=== PATIENT | male | born 1950 | race American Indian/Alaskan Native ===

== ENCOUNTER 2017-07-18 16:41 | Emergency (ER) | payer BC, OTHER ==
[~2017-07-18] VITALS: Ht 167.6 cm; Wt 84.4 kg
[~2017-07-18 16:41] MED LIST: ACETAMINOPHEN325 M1 PO; ACID CONTROL20 MG PO; ADULT LOW DOSE81 MG PO; D-20002000 UNIT PO; DILTIAZEM ER240 MG PO; FERROUS SULFAT325 MG PO; FLUTICASONE PRO16 GM NS; LISINOPRIL10 MG PO; METFORMIN HCL500 MG PO; METOPROLOL TART25 MG PO; PROPRANOLOL HCL20 MG PO; SIMVASTATIN20 MG PO; WARFARIN SODIUM5 MG PO
[2017-07-18] MEDS ORDERED: XARELTO20 MG PO (16:57)
[2017-07-18] MEDS ORDERED: GENTAK5 ML OPTH (17:37)
== END 2017-07-18 17:51 | disposition home or self-care (01) ==
LOC: ED 16:41
DX: H10.9 Unspecified conjunctivitis (principal); I25.810 Atherosclerosis of coronary artery bypass graft(s) without angina pectoris; E11.9 Type 2 diabetes mellitus without complications; Z91.038 Other insect allergy status; Z79.899 Other long term (current) drug therapy; Z79.82 Long term (current) use of aspirin; Z79.84 Long term (current) use of oral hypoglycemic drugs; Z79.51 Long term (current) use of inhaled steroids; Z98.890 Other specified postprocedural states
CPT/HCPCS: 99282

== ENCOUNTER 2018-05-03 23:39 | Emergency (ER) | payer BC, OTHER ==
[~2018-05-03] VITALS: Ht 167.6 cm; Wt 84.4 kg
[~2018-05-03 23:39] MED LIST changes: +GENTAK5 ML OPTH; +XARELTO20 MG PO
[2018-05-04] MEDS ORDERED: NORCO 5-325 TA1 EACH PO (01:06)
--- NOTE | 2018-05-05 05:50 | EKG ---
[facility] [address] [place], [place] [address] Signed Atrial flutter with variable AV block Abnormal ECG No previous ECGs available Confirmed by CHARISSA HODGSON MD ([id number]) on 05/05/2018 5:50:08 AM Electronically Signed By: CHARISSA HODGSON MD 05/05/18 0550 PATIENT NAME: LOUIE WHITLOCK Electrocardiogram DATE OF : 48 PHYSICIAN: CHARISSA HODGSON MD REPORT #: [id number] REPORT IS CONFIDENTIAL AND NOT TO BE RELEASED WITHOUT AUTHORIZATION
== END 2018-05-04 01:40 | disposition home or self-care (01) ==
LOC: ED 23:39
DX: N13.2 Hydronephrosis with renal and ureteral calculous obstruction (principal); I25.10 Atherosclerotic heart disease of native coronary artery without angina pectoris; E11.9 Type 2 diabetes mellitus without complications; I10 Essential (primary) hypertension; I48.91 Unspecified atrial fibrillation; Z87.891 Personal history of nicotine dependence; Z91.030 Bee allergy status; Z79.899 Other long term (current) drug therapy; Z79.84 Long term (current) use of oral hypoglycemic drugs; Z79.82 Long term (current) use of aspirin
CPT/HCPCS: 74176; 80053; 81001; 83690; 85025; 93005; 93010; 96374; 96375; 99284; J1170; J1885; J2405; J7040

== ENCOUNTER 2024-03-28 11:52 | Emergency (ER) | payer MEDICARE, OTHER ==
[~2024-03-28] VITALS: Ht 167.6 cm; Wt 71.6 kg
[~2024-03-28 11:52] MED LIST changes: +NORCO 5-325 TA1 EACH PO
[2024-03-28 13:27] VITALS: BP 121/77
== END 2024-03-28 13:18 | disposition home or self-care (01) ==
LOC: ED 11:52
DX: S90.31XA Contusion of right foot, initial encounter (principal); I25.10 Atherosclerotic heart disease of native coronary artery without angina pectoris; E11.9 Type 2 diabetes mellitus without complications; I10 Essential (primary) hypertension; W18.30XA Fall on same level, unspecified, initial encounter; Z87.891 Personal history of nicotine dependence; Z95.1 Presence of aortocoronary bypass graft; Z91.030 Bee allergy status; Z79.84 Long term (current) use of oral hypoglycemic drugs; Z79.82 Long term (current) use of aspirin; Z79.02 Long term (current) use of antithrombotics/antiplatelets; Z79.899 Other long term (current) drug therapy
CPT/HCPCS: 73630; 99283-25

== ENCOUNTER 2024-12-29 17:17 | Inpatient (IN) | payer MEDICARE, OTHER ==
[~2024-12-29] VITALS: Ht 167.6 cm; Wt 62.0 kg
[~2024-12-29 17:17] MED LIST changes: +METFORMIN HCL500 M2 PO; -METFORMIN HCL500 MG PO
[2024-12-29 17:38] LABS: BASOPHILS 1.6 % (0-2); EOSINOPHILS 1.2 % (0-6); HEMATOCRIT 46.1 % (35.0-50.0); HEMOGLOBIN 15.8 g/dL (12.0-18.0); LYMPHOCYTES 14.4 % (24-44); MCH 30.2 (27-36); MCHC 34.2 g/dl (30-36); MCV 88.3 fl (81-99); MONOCYTES 6.8 % (0-12); PLATELET COUNT 218 K/uL (140-440); RBC 5.22 M/ul (4.3-5.7); RDW 14.2 (10.5-15.0)
[2024-12-29 17:43] LABS: PARTIAL THROMBOPLASTIN TIME 26.4 Sec (22.9-41.3)
[2024-12-29 17:44] LABS: INR 1.03 (0.80-1.30); PROTIME 13.4 Sec (11.2-14.2)
[2024-12-29 17:50] LABS: ALBUMIN 4.1 g/dL (3.4-5.0); ALBUMIN/GLOBULIN RATIO 0.95 (1.1-2.4); ANION GAP 15.2 (7-21); BILIRUBIN, TOTAL 1.5 mg/dL (0.2-1.0); CALCIUM 9.7 mg/dL (8.5-10.1); CHOLESTEROL/HDL RATIO 3.4; CREATININE, SERUM 0.6 mg/dL (0.70-1.30); POTASSIUM 4.2 mmol/L (3.5-5.1); PROTEIN, TOTAL 8.4 g/dL (6.4-8.2)
[2024-12-29] MEDS ORDERED: ondansetron HCL 4 MG/2 ML VIAL IV PRN (19:45)
[2024-12-29] MEDS ORDERED: GLUCAGON,HUMAN RECOMBINANT 1 MG/ML VIAL SUB-Q PRN (19:45)
[2024-12-29] MEDS ORDERED: IBLOOD GLUCOSE TEST STRIP 1 EA TEST XX PRN (19:45)
[2024-12-29] MEDS ORDERED: ACETAMINOPHEN 325 MG TAB PO PRN (19:45)
[2024-12-29] MEDS ORDERED: DEXTROSE 5% - LACTATED RINGERS 1,000 ML IV SCH (19:45)
[2024-12-29] MEDS ORDERED: DEXTROSE 50% 50 ML SYR IV PRN ×2 (19:45)
[2024-12-29] MEDS ORDERED: DEXTROSE 5% 1,000 ML IV PRN (19:45)
[2024-12-29] MEDS ORDERED: IBLOOD GLUCOSE TEST STRIP 1 EA TEST VI SCH (20:00)
[2024-12-29] MEDS ORDERED: Insulin Regular, Human 100 UNIT/ML ML SUB-Q SCH (20:00)
[2024-12-29 20:37] VITALS: BP 134/69
--- NOTE | 2024-12-29 21:10 | EKG ---
[facility] [address] [place] [address] Signed Sinus rhythm with occasional premature ventricular complexes Otherwise normal ECG When compared with ECG of 04-MAY-2018 00:41, Sinus rhythm has replaced Atrial flutter Nonspecific T wave abnormality, worse in Inferior leads Confirmed by Noemi Gomez MD () on 12/29/2024 9:10:09 PM Electronically Signed By: NOEMI GOMEZ MD 12/29/[id number] PATIENT NAME: LOUIE WHITLOCK Electrocardiogram DATE OF : 48 PHYSICIAN: NOEMI GOMEZ MD REPORT #: [id number] REPORT IS CONFIDENTIAL AND NOT TO BE RELEASED WITHOUT AUTHORIZATION
[2024-12-29 21:24] VITALS: BP 134/69
[2024-12-30] VITALS (12 sets, daily range): BP systolic 107–123; BP diastolic 46–63
[2024-12-30 05:56] LABS: BASOPHILS 1.4 % (0-2); EOSINOPHILS 2.5 % (0-6); HEMATOCRIT 42.8 % (35.0-50.0); HEMOGLOBIN 14.7 g/dL (12.0-18.0); LYMPHOCYTES 17.5 % (24-44); MCH 30.4 (27-36); MCHC 34.4 g/dl (30-36); MCV 88.2 fl (81-99); MONOCYTES 8.9 % (0-12); NEUTROPHILS 69.7 % (39-80); PLATELET COUNT 178 K/uL (140-440); RBC 4.85 M/ul (4.3-5.7); RDW 14.3 (10.5-15.0)
[2024-12-30 06:18] LABS: ALBUMIN 3.7 g/dL (3.4-5.0); ANION GAP 13.7 (7-21); BILIRUBIN, TOTAL 1.1 mg/dL (0.2-1.0); BUN/CREATININE RATIO 27.11 (6.0-28.6); CALCIUM 9.2 mg/dL (8.5-10.1); CREATININE, SERUM 0.59 mg/dL (0.70-1.30); MAGNESIUM 2.1 mg/dL (1.8-2.4); PHOSPHORUS, INORGANIC 4.1 mg/dL (2.5-4.9); POTASSIUM 3.7 mmol/L (3.5-5.1); PROTEIN, TOTAL 7.4 g/dL (6.4-8.2)
[2024-12-30] MEDS ORDERED: PHARMACY RENAL DOSE ADJUSTMENT 1 DOSE MISC PO SCH (12:00)
[2024-12-30] MEDS ORDERED: INSULIN LISPRO 100 UNIT/ML ML SUB-Q SCH (12:00)
[2024-12-30] MEDS ORDERED: IBLOOD GLUCOSE TEST STRIP 1 EA TEST VI SCH (12:00)
[2024-12-31 01:40] VITALS: BP 118/57
[2024-12-31 05:30] LABS: EOSINOPHILS 1.9 % (0-6); HEMATOCRIT 39.4 % (35.0-50.0); HEMOGLOBIN 13.5 g/dL (12.0-18.0); LYMPHOCYTES 14.6 % (24-44); MCH 30.1 (27-36); MCHC 34.3 g/dl (30-36); MCV 87.5 fl (81-99); MONOCYTES 8.4 % (0-12); NEUTROPHILS 74.1 % (39-80); PLATELET COUNT 155 K/uL (140-440)
[2024-12-31 05:33] VITALS: BP 121/61
[2024-12-31 05:41] VITALS: BP 121/61
[2024-12-31 05:47] LABS: ALBUMIN 3.3 g/dL (3.4-5.0); ALBUMIN/GLOBULIN RATIO 1.03 (1.1-2.4); ANION GAP 12.4 (7-21); BILIRUBIN, TOTAL 0.7 mg/dL (0.2-1.0); BUN/CREATININE RATIO 25.42 (6.0-28.6); CALCIUM 8.6 mg/dL (8.5-10.1); CREATININE, SERUM 0.59 mg/dL (0.70-1.30); MAGNESIUM 1.9 mg/dL (1.8-2.4); PHOSPHORUS, INORGANIC 3.5 mg/dL (2.5-4.9); POTASSIUM 3.4 mmol/L (3.5-5.1); PROTEIN, TOTAL 6.5 g/dL (6.4-8.2)
[2024-12-31] MEDS ORDERED: POTASSIUM CHLORIDE 10 MEQ TABCR PO ONE (07:45)
[2024-12-31] MEDS ORDERED: ASPIRIN 81 MG CHEW PO SCH (08:00)
[2024-12-31] MEDS ORDERED: POTASSIUM CHLORIDE 20 MEQ/15 ML CUP PO ONE (08:45)
[2024-12-31 09:00] VITALS: BP 127/53
[2024-12-31] MEDS ORDERED: CLOPIDOGREL BISULFATE 75 MG TAB PO SCH (09:00)
[2024-12-31 10:13] VITALS: BP 127/53
[2024-12-31] MEDS ORDERED: SOTALOL80 MG PO (10:19)
[2024-12-31] MEDS ORDERED: SAXAGLIPTIN HCL5 MG PO (10:19)
[2024-12-31] MEDS ORDERED: GLUCOTROL XL5 MG PO (10:20)
[2024-12-31] MEDS ORDERED: DILT-XR120 MG PO (10:21)
[2024-12-31] MEDS ORDERED: LIPITOR80 MG PO (10:22)
[2024-12-31] MEDS ORDERED: INVOKANA300 MG PO (10:23)
[2024-12-31] MEDS ORDERED: NITROSTAT0.4 MG SL (10:25)
[2024-12-31] MEDS ORDERED: TYLENOL EXTRA500 MG PO (11:58)
[2024-12-31 12:40] VITALS: BP 130/51
[2025-01-01] MEDS ORDERED: Rivaroxaban 10 MG TAB PO SCH (08:00)
== END 2024-12-31 13:25 | DRG 65 ==
LOC: ED 17:17 → MS 20:03
PROVIDERS: Emergency Medicine; ADMIT Family Medicine; ATTEND Family Medicine
DX: I63.512 Cerebral infarction due to unspecified occlusion or stenosis of left middle cerebral artery (principal); G81.91 Hemiplegia, unspecified affecting right dominant side; I48.92 Unspecified atrial flutter; R29.810 Facial weakness; I25.10 Atherosclerotic heart disease of native coronary artery without angina pectoris; E11.9 Type 2 diabetes mellitus without complications; E78.5 Hyperlipidemia, unspecified; I10 Essential (primary) hypertension; I48.91 Unspecified atrial fibrillation; R47.01 Aphasia; Z96.611 Presence of right artificial shoulder joint; R29.714 NIHSS score 14; Z91.030 Bee allergy status; Z87.891 Personal history of nicotine dependence; Z95.1 Presence of aortocoronary bypass graft; Z98.890 Other specified postprocedural states; Z79.899 Other long term (current) drug therapy; Z79.84 Long term (current) use of oral hypoglycemic drugs; Z79.82 Long term (current) use of aspirin; Z79.811 Long term (current) use of aromatase inhibitors; Z79.01 Long term (current) use of anticoagulants
CPT/HCPCS: 36415; 70450; 70496; 70498; 70551; 71045; 80053; 80061; 83036; 83735; 84100; 84484; 85025; 85610; 85730; 92610; 93005; 93010; 93306; 97162; 97166; 97530; A9270; J1815; J7121; Q9967

== ENCOUNTER 2025-06-29 10:48 | Emergency (ER) | payer MEDICARE, OTHER ==
[~2025-06-29] VITALS: Ht 167.6 cm; Wt 56.3 kg
[~2025-06-29 10:48] MED LIST changes: +DILT-XR120 MG PO; +GLUCOTROL XL5 MG PO; +INVOKANA300 MG PO; +LIPITOR80 MG PO; +NITROSTAT0.4 MG SL; +SAXAGLIPTIN HCL5 MG PO; +SOTALOL80 MG PO; +TYLENOL EXTRA500 MG PO
[2025-06-29 11:11] LABS: BASOPHILS 0.8 % (0.2-1.2); EOSINOPHILS 2.0 % (0.8-7.0); LYMPHOCYTES 11.9 % (21.8-53.1); MCH 30.3 PG (25.7-32.2); MCHC 33.5 g/dL (32.3-36.5); MCV 90.6 fL (79.0-92.2); MONOCYTES 6.3 % (5.3-12.2); NEUTROPHILS 78.8 % (34.0-67.9); RBC 4.78 M/uL (4.63-6.08)
[2025-06-29 11:30] LABS: ALT (SGPT) 116.0 U/L (14-59); AST (SGOT) 59.0 U/L (15-37); GLOMERULAR FILTRATION RATE,EST 108.0 mL/min (>60); PROTEIN, TOTAL 7.2 g/dL (6.4-8.2); UREA NITROGEN 22.0 mg/dL (7-18)
[2025-06-29 13:07] VITALS: BP 119/66
== END 2025-06-29 15:35 | disposition home or self-care (01) ==
LOC: ED 10:48
PROVIDERS: Emergency Medicine
DX: M25.551 Pain in right hip (principal); I69.320 Aphasia following cerebral infarction; I69.351 Hemiplegia and hemiparesis following cerebral infarction affecting right dominant side; I10 Essential (primary) hypertension; E11.9 Type 2 diabetes mellitus without complications; I25.10 Atherosclerotic heart disease of native coronary artery without angina pectoris; I48.91 Unspecified atrial fibrillation; E78.5 Hyperlipidemia, unspecified; Z91.030 Bee allergy status; Z87.891 Personal history of nicotine dependence; Z79.84 Long term (current) use of oral hypoglycemic drugs; Z79.01 Long term (current) use of anticoagulants; Z79.899 Other long term (current) drug therapy
CPT/HCPCS: 36415; 73502; 80053; 85025; 99284

== ENCOUNTER 2025-07-06 16:23 | Inpatient (IN) | payer MEDICARE, OTHER ==
[~2025-07-06] VITALS: Ht 167.6 cm; Wt 53.5 kg
[~2025-07-06 16:23] MED LIST changes: -METFORMIN HCL500 M2 PO; +METFORMIN HCL500 MG PO; -TYLENOL EXTRA500 MG PO; +TYLENOL325 MG PO
--- OUTSIDE RECORDS SUMMARY | 2025-07-06 16:29 | XMS ---
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 No recent Security Events currently on file CRITERIA MET - [facility] - 2 Visits in 30 Days CARE PROVIDERS SAM KAUR Physician Photo Intern 01/28/2025-Current PHONE: Unknown LUIS ANTONIO DENISE Nurse Practitioner: Family Demi PHONE: [phone] ISRAEL ALVARENGA Physician Assistant Demi KAUFFMAN PHONE: [phone] LUNA ANSARI Nurse Practitioner: Adult Health Demi CUTLER PHONE: [phone] SEUN KWOK J Internal Medicine Current PHONE: [phone] MARTY ESPINOZA Physician Photo Intern Current LUIS ANTONIO PHONE: [phone] MURRAY JERRY Nurse Practitioner: Family Demi SALMON PHONE: [phone] Pawan has no Care Guidelines for this patient. [facility] VISIT COUNT (12 MO.) Uriel Ge TOTAL 3 NOTE: Visits indicate total known visits. ED/UCC VISIT TRACKING (12 MO.) 07/06/2025 16:23 [facility] TYPE: Emergency COMPLAINT: - WEAKNESS 06/29/2025 10:48 [facility] TYPE: Emergency COMPLAINT: - WEAKNESS DIAGNOSES: - Aphasia following cerebral infarction - Atherosclerotic heart disease of [place] coronary artery without angina pectoris - Bee allergy status - Essential (primary) hypertension - Hemiplegia and hemiparesis following cerebral infarction affecting right dominant side - Hyperlipidemia, unspecified - prison (current) use of anticoagulants - prison (current) use of oral hypoglycemic drugs - Other termite control service representative (current) drug therapy - Pain in right hip - Pain in right leg - Personal history of nicotine dependence - Type 2 diabetes mellitus without complications - Unspecified atrial fibrillation 12/29/2024 17:17 [facility] TYPE: Emergency COMPLAINT: - STROKE SYMPTOMS INPATIENT VISIT TRACKING (12 MO.) 12/31/2024 14:40 [facility] Carla ALANIS (Flako Arriola) TYPE: Inpatient Rehab DIAGNOSES: - Cerebral infarction due to unspecified occlusion or stenosis of left middle cerebral artery - Dysphagia following cerebral infarction - Encounter for palliative care - Foot drop, right foot - Other malaise - Other specified counseling 12/29/2024 20:03 [facility] TYPE: Medical Surgical COMPLAINT: - CVA DIAGNOSES: - Aphasia - Aphasia - Atherosclerotic heart disease of [place] coronary artery without angina pectoris - Atherosclerotic heart disease of [place] coronary artery without angina pectoris - Bee allergy status - Bee allergy status - Cerebral infarction due to unspecified occlusion or stenosis of left middle cerebral artery - Cerebral infarction due to unspecified occlusion or stenosis of left middle cerebral artery - Essential (primary) hypertension - Essential (primary) hypertension - Facial weakness - Hemiplegia, unspecified affecting right dominant side - Hemiplegia, unspecified affecting right dominant side - Hyperlipidemia, unspecified - Hyperlipidemia, unspecified - prison (current) use of anticoagulants - prison (current) use of anticoagulants - buttermaker helper (current) use of aromatase inhibitors - prison (current) use of aromatase inhibitors - prison (current) use of aspirin - prison (current) use of aspirin - buttermaker helper (current) use of oral hypoglycemic drugs - buttermaker helper (current) use of oral hypoglycemic drugs - NIHSS score 14 - NIHSS score 14 - Other [facility] (current) drug therapy - Other [facility] (current) drug therapy - Other specified postprocedural states - Other specified postprocedural states - Personal history of nicotine dependence - Personal history of nicotine dependence - Presence of aortocoronary bypass graft - Presence of aortocoronary bypass graft - Presence of right artificial shoulder joint - Presence of right artificial shoulder joint - Type 2 diabetes mellitus without complications - Type 2 diabetes mellitus without complications - Unspecified atrial fibrillation - Unspecified atrial fibrillation - Unspecified atrial flutter - Unspecified atrial flutter [email or web address]
[2025-07-06 17:10] LABS: BASOPHILS 0.2 % (0.2-1.2); EOSINOPHILS 0 % (0.8-7.0); LYMPHOCYTES 6.1 % (21.8-53.1); MCH 30.0 PG (25.7-32.2); MCHC 32.7 g/dL (32.3-36.5); MCV 91.8 fL (79.0-92.2); MONOCYTES 6.4 % (5.3-12.2); NEUTROPHILS 86.8 % (34.0-67.9); RBC 4.53 M/uL (4.63-6.08)
[2025-07-06] MEDS ORDERED: SODIUM CHLORIDE 0.9% 1,000 ML IV ONE (17:15)
[2025-07-06 17:19] LABS: ALT (SGPT) 129.0 U/L (14-59); AST (SGOT) 88.0 U/L (15-37); GLOMERULAR FILTRATION RATE,EST 95.0 mL/min (>60); PROTEIN, TOTAL 7.1 g/dL (6.4-8.2); UREA NITROGEN 23.0 mg/dL (7-18)
[2025-07-06 17:40] LABS: LACTIC ACID, BLOOD 3.1 mmol/L (0.4-2.0)
[2025-07-06] MEDS ORDERED: LIDOCAINE 2% VISCOUS 6 ML SYR TOP ONE (18:00)
[2025-07-06 18:15] LABS: BLOOD/HGB, URINE SMALL (Negative); KETONE, URINE SMALL (Negative); LEUK ESTERASE, URINE NEGATIVE (negative); NITRITE, URINE POSITIVE (negative)
[2025-07-06 18:26] LABS: BACTERIA, URINE 1+ /hpf (negative); CASTS, URINE HYALINE 2+ \\lpf; CRYSTALS, URINE NONE SEEN (0-1+); EPITHELIAL CELLS, URINE NONE SEEN /lpf (0-1+); REFLEX CULTURE, URINE Yes (No)
[2025-07-06] MEDS ORDERED: ENOXAPARIN SODIUM 40 MG/0.4 ML SYR SUB-Q SCH (18:57)
[2025-07-06] MEDS ORDERED: SODIUM CHLORIDE 0.9% 1,000 ML IV SCH (19:00)
[2025-07-06] MEDS ORDERED: DEXAMETHASONE SOD PHOS 10 MG/ML VIAL IV SCH (19:01)
[2025-07-06 19:15] LABS: CORONAVIRUS COVID-19 AG POSITIVE (NEGATIVE)
[2025-07-06 19:57] LABS: LACTIC ACID, BLOOD 2.4 mmol/L (0.4-2.0)
--- NOTE | 2025-07-06 20:45 | NUR ---
PT ARRIVED TO FLOOR FROM ED ACCOMPANIED BY ADAM THAYER. PT CALM AND COOPERATIVE. PT WITH EXPRESSIVE APHAGIA S/P CVA 12/29, MOSTLY NODS AND SHAKES HEAD FOR COMMUNICATION. PT SPO2 92% ON RA, CPOX APPLIED, NO ACUTE DISTRESS NOTED. MALE PUREWICK IN PLACE AND CONNECTED TO WALL SUCTION. PT WITH R ARM SLING FOR SUPPORT, R SIDE IS FLACCID. PT PROVIDED WITH WATER AND ENSURE SHAKE. IVF RUNNING TO L AC @ 125/HR. PT AND DAUGHTER ORIENTED TO ROOM, EASY TOUCH CALL POST PROVIDED, BED ALARM ACTIVATED, BED IN LOW POSITION AND LOCKED, SIDERAILS UP X 3. ADMISSION HX AND SCREENINGS COMPLETED
[2025-07-06 20:49] VITALS: BP 126/66
[2025-07-06 20:55] VITALS: BP 126/66
[2025-07-06] MEDS ORDERED: MELATONIN 3 MG TAB PO PRN (21:00)
[2025-07-06] MEDS ORDERED: INSULIN LISPRO 100 UNIT/ML ML SUB-Q SCH (21:00)
[2025-07-06] MEDS ORDERED: IBLOOD GLUCOSE TEST STRIP 1 EA TEST VI SCH (21:00)
--- NOTE | 2025-07-06 23:08 | NUR ---
REPORT GIVEN TO ROSEMARIE JOHNSON
--- NOTE | 2025-07-06 23:15 | NUR ---
RECEIVED REPORT FROM ROSEMARIE LOU. PT AWAKE, ASSSESSMENT DONE. PT ALERT AND COOPERATIVE. EXP APHASIA NOTED. ANSWERS YES/NO QUESTIONS AND FOLLOWS COMMANDS. DENIES PAIN. RIGHT SIDE FLACCID. RUE SLING IN PLACE. [facility]. RA. CPOX IN PLACE. DENIES SOB. AIRBORNE PRECAUTIONS IN PLACE. HRR. BTA. PUREWICK IN PLACE. LFA IV INFUSING IVF @ 125MLS/HR AND RW IV SL'D. PT CLEANED OF INC SMALL BM. CALL LIGHT IN LEFT HAND. BED ALARM IN PLACE.
--- NOTE | 2025-07-06 23:39 | NUR ---
DR. POST NOTIFIED OF LACTIC ACID INCREASE TO 2.6 FROM 2.4. ORDER RECEIVED TO REPEAT LACTIC IN 2-3 HRS UNTIL NORMAL RANGE.
[2025-07-07] VITALS (10 sets, daily range): BP systolic 91–112; BP diastolic 51–80
--- NOTE | 2025-07-07 00:54 | NUR ---
PT IV BEEPING, OCCLUDED, RESTARTED. NOTED PT HAS RUE SLING OFF AND HAS PULLED OUT RW SL. LAC IV REINFORCED W/ COBAN.
--- NOTE | 2025-07-07 02:03 | NUR ---
iv pump alarming, distal occlusion. pump restarted, iv site wnl and fluids infusing as directed. bed alarm remains on and call light in reach.
--- NOTE | 2025-07-07 02:39 | NUR ---
IV BEEPING, OCCLUDED. IVF RESTARTED. PT AWAKE, DENIES NEEDS AT THIS TIME.
--- NOTE | 2025-07-07 05:10 | NUR ---
PT STILL AWAKE, HAS SLEPT VERY LITTLE TONIGHT. DENIES NEEDS AT THIS TIME.
[2025-07-07 05:43] LABS: MCH 30.2 PG (25.7-32.2); MCHC 33.6 g/dL (32.3-36.5); MCV 89.9 fL (79.0-92.2); RBC 4.04 M/uL (4.63-6.08)
[2025-07-07 05:51] LABS: GLOMERULAR FILTRATION RATE,EST 108.0 mL/min (>60); UREA NITROGEN 20.0 mg/dL (7-18)
[2025-07-07 05:57] LABS: BANDS, MANUAL DIFF 23; LYMPHOCYTES, MANUAL DIFF 4; MONOCYTES, MANUAL DIFF 3; NEUTROPHILS, MANUAL DIFF 70
--- NOTE | 2025-07-07 06:37 | NUR ---
PT AWAKE, FIDGETTING IN ROOM. LS DIM, ON RA. DENIES NEEDS.
--- NOTE | 2025-07-07 07:30 | NUR ---
REPORT RECIEVED FROM ROSEMARIE JOHNSON. PATIENT RESTING IN BED, AWAKE. PATIENT DENIES ANY NEEDS AT THIS TIME. NEW BAG OF NS STARTED AND INFUSING PER ORDER. CALL LIGHT AND PERSONAL BELONGINGS ARE WITHIN REACH.
--- NOTE | 2025-07-07 08:45 | NUR ---
PATIENT ASSESSMENT COMPLETED. PATIENT MEDICATED PER EMAR. PATIENT IS ALERT AND ORIENTED PER THIS WARDROBE ASSISTANT. PATIENT IS WITH EXPRESSIVE APHASIA, BUT WAS ABLE TO NOD "YES" AND SHAKE HIS HEAD FOR "NO" WHEN ASKED ORIENTATION QUESTIONS. QUESTIONS ASKED VERBALLY WELL WITH WRITING ON THE WHITE BOARD. PATIENT'S OXYGEN LEVEL IS 100% ON ROOM AIR. LUNG SOUNDS ARE DIMINISHED IN THE RIGHT UPPER AND LOWER LOBES. PATIENT LEFT UPPER AND LOWER LOBES ARE DIMINISHED, BUT WITH CLEAR AIR MOVEMENT NOTED. PATIENT ABLE TO MOVE HIS LEFT ARM WELL HIS LEFT LEG AND NODS HIS HEAD YES WHEN ASKED IF HE IS ABLE TO FEEL THIS RN TOUCH HIS LEFT EXTREMETIES. PATIENT SHAKES HIS HEAD NO WHEN ASKED BY THIS RN IF HE IS ABLE TO FEEL THIS RN TOUCH HIS RIGHT EXTREMETIES. PULSES ARE PALPABLE IN UPPER AND LOWER EXTREMETIES, BILATERALLY. BOWEL TONES ARE HYPOACTIVE IN ALL 4 QUADRANTS. IV FLUIDS INFUSING PER ORDER. PATIENT SHOWS SIGNS OF PAIN WHEN HIS RIGHT UPPER AND LOWER EXTREMETIES ARE MOVED, BUT DENIES (SHAKES HIS HEAD NO) WHEN ASKED IF HE WANTS MEDICATION TO HELP WITH HIS PAIN. PATIENT APPEARS COMFORTABLE WHEN NOT BEING TOUCHED OR MOVED. PATIENT EDUCATED ON USE OF CALL LIGHT. PATIENT WITHOUT FURTHER NEEDS AT THIS TIME. CALL LIGHT AND PERSONAL BELONGINGS ARE WITHIN REACH. BED ALARM ACTIVATED FOR SAFETY.
[2025-07-07] MEDS ORDERED: FAMOTIDINE 20 MG TAB PO SCH (09:00)
--- NOTE | 2025-07-07 09:15 | NUR ---
PT AND OT IN ROOM WORKING WITH PATIENT.
--- NOTE | 2025-07-07 10:00 | NUR ---
ATTEMPT TO SPEAK WITH PATIENT. HE IS UNABLE TO ANSWER QUESTIONS. WILL CALL HIS SON.
--- NOTE | 2025-07-07 10:09 | NUR ---
CALLED AND SPOKE WITH SON, SONIA. PATIENT LIVES WITH SON. HE HAS A WHEELCHAIR. NO OTHER DME. SON ASSISTS PATIENT WITH ADL'S AT HOME. HE IS NEEDS ASSISTANCE GETTING IN AND OUT OF BED, GETTING INTO WHEELCHAIR. SON TRANSPORTS PATIENT TO APPOINTMENTS. NO FINANCIAL CONCERNS. PATIENT HAS BEEN LIVING WITH SON IN THIS CONDITION FOR 2 MONTHS. SON STATES THEY CURRENTLY HAVE NO CM NEEDS. PLANS TO TAKE PATIENT HOME WHEN MEDICALLY READY. INFORMED COULD BE DC'D TODAY AND STAFF WILL CALL IF HE IS READY TO GO HOME TODAY. VERBALIZES UNDERSTANDING. SONIA ALSO STATES THAT PATIENT IS UNABLE TO SHOWER BUT HE DOES ASSIST HIM WITH BED BATHS. THEY PREVIOUSLY HAD HOME HEALTH AND PATIENT NO LONGER WANTED TO RECEIVE SERVICES.
--- NOTE | 2025-07-07 10:10 | NUR ---
PATIENT RESTING IN BED WITH HOB ELEVATED. PATIENT REQUESTING TO LOWER HOB BED. HOB LOWERED, PATIENT WITHOUT FURTHER NEEDS AT THIS TIME. IV FLUIDS INFUSING PER ORDER. CALL LIGHT AND PERSONAL BELONGINGS ARE WITHIN REACH.
--- NOTE | 2025-07-07 11:10 | NUR ---
PATIENT RESTING IN BED ON HIS BACK WITH HIS EYES CLOSED. EVEN AND UNLABORED RESPIRATIONS NOTED. CALL LIGHT AND PERSONAL BELONGINGS ARE WITHIN REACH. BED ALARM ACTIVATED.
--- NOTE | 2025-07-07 11:19 | NUR ---
VISITED DURING SPIRITUAL CARE ROUNDS. PT APPEARED TO BE SLEEPING. DID NOT DISTURB. PROVIDED PRAYER.
[2025-07-07] MEDS ORDERED: PHARMACY RENAL DOSE ADJUSTMENT 1 DOSE MISC PO SCH (12:00)
--- NOTE | 2025-07-07 12:15 | NUR ---
PATIENT MEDICATED PER EMAR. PATIENT DENIES WANTING TO SIT UP AND EAT LUNCH. PATIENT REQUESTING THIS RN TO LOWER HEAD OF BED. PATIENT REFUSING TO BE REPOSITIONED. PATIENT WITHOUT FURTHER NEEDS AT THIS TIME. CALL LIGHT AND PERSONAL BELONGINGS ARE WITHIN REACH. BED ALARM ACTIVATED FOR PATIENT SAFETY.
--- NOTE | 2025-07-07 13:11 | NUR ---
UR CLINICAL REVIEW: 2 MN FOR VERSALUS-PER REPAIRER GENERAL MEETS INPT FOR SEPSIS OF UNKNOWN ETIOLOGY WITH NEED FOR SERIAL LABS, IV ABX AND MONITORING MEDICARE INPT 07/06/25 @ 3354 ORDER MATCHES REG NO AUTH REQUIRED PER MEDICARE GUIDELINES DISCHARGE TO HOME WITH SON WHEN STABLE
--- NOTE | 2025-07-07 13:12 | NUR ---
HOURLY ROUNDING. PATIENT IS LAYING IN BED SLEEP, NO REQUEST FROM PATIENT AT THIS TIME. MERT PROMPT PATIENT TO EAT HIS LUNCH, HE WENT BACK TO SLEEP, CALL LIGHT PLACED WITHIN REACH
--- NOTE | 2025-07-07 13:35 | NUR ---
PATIENT RESTING IN BED WITH HIS EYES CLOSED. EVEN AND UNLABORED RESPIRATIONS NOTED. CALL LIGHT AND PERSONAL BELONGINGS ARE WITHIN REACH. BED ALARM ACTIVATED FOR SAFETY.
--- NOTE | 2025-07-07 14:13 | NUR ---
PATIENT RESTING IN BED AND DENIES REPOSITIONING AND DENIES WANTING TO SIT UP TO EAT ANYTHING. PATIENT IV OCCLUDED. PATIENT EDUCATED ON KEEPING ARM STRAIGHT FOR FLUIDS TO PROPERLY INFUSE, PATIENT WITH VERBAL UNDERSTANDING OF "OH". PATIENT ALSO WITH VERBAL "NO" FOR REFUSING TO BE REPOSITIONED. PATIENT WITHOUT FURTHER NEEDS AT THIS TIME. CALL LIGHT AND PERSONAL BELONGINGS ARE WITHIN REACH. BED ALARM ACTIVATED FOR SAFETY.
--- NOTE | 2025-07-07 15:12 | NUR ---
PATIENT RESTING IN BED WITH HIS EYES CLOSED AND MOUTH OPEN, LAYING ON HIS BACK. EVEN AND UNLABORED RESPIRATIONS NOTED. CALL LIGHT AND PERSONAL BELONGINGS ARE WITHIN REACH. BED ALARM ACTIVATED FOR SAFETY.
--- NOTE | 2025-07-07 16:14 | NUR ---
PATIENT RESTING IN BED, IV ALARMING DUE TO BEING OCCLUDED. NEW BAG OF FLUID STARTED AT THIS TIME. PATIENT REFUSING TO BE REPOSITIONED AT THIS TIME AND DENIES ANY FURTHER NEEDS. CALL LIGHT AND PERSONAL BELONGINGS ARE WITHIN REACH. BED ALARM ACTIVATED FOR SAFETY.
--- NOTE | 2025-07-07 17:15 | NUR ---
SEED CLEANER IN ROOM ASSISTING PATIENT AND STATES SHE WILL CALL IF SHE NEEDS ASSISTANCE.
--- NOTE | 2025-07-07 17:30 | NUR ---
2PA TO CHANGE PATIENT'S BRIEF. A CLEAN GOWN WAS PROVIDED. PATIENT REFUSED TO EAT DINNER.
--- NOTE | 2025-07-07 18:55 | NUR ---
PATIENT RESTING IN BED, IV FLUIDS INFUSING PER ORDER. PATIENT WITHOUT FURTHER NEEDS AT THIS TIME. CALL LIGHT AND PERSONAL BELONGINGS ARE WITHIN REACH.
--- NOTE | 2025-07-07 19:47 | NUR ---
RECEIVED REPORT FROM ROSEMARIE DARDEN. PATIENT RESTING IN BED, DENIES ANY NEEDS WITH SHAKING HIS HEAD NO WHEN ASKED. RESPIRATIONS ARE EVEN AND UNLABORED. CALL LIGHT IN REACH.
--- NOTE | 2025-07-07 20:10 | NUR ---
DYNAMITER OBTAINED VITALS. NO NEW I&O AT THIS TIME. PT STATES NO NEEDS AND CALL LIGHT WITHIN REACH.
--- NOTE | 2025-07-07 22:01 | NUR ---
SCHEDULED MEDICATION GIVEN TO PATIENT PER ORDER. PATIENT VERBALLY RESPONDS TO RN, ANSWERS YES AND NO QUESTIONS. STATES THE YEAR IS 20[birth year], OTHERWISE ALERT AND ORIENTED AND ANSWERED ALL QUESTIONS CORRECTLY. PATIENT DECLINES BEING ABLE TO MOVE RIGHT ARM AND LEG. MOVES LEFT ARM AND LEG WITH NORMAL STRENGTH. RESPIRATIONS EVEN AND UNLABORED. HE DENIES ANY NEEDS, IVF CONTINUING TO INFUSE WITHOUT DIFFICULTY. CALL LIGHT IN REACH.
--- NOTE | 2025-07-07 23:35 | NUR ---
ROUNDED ON PATIENT, PATIENT RESTING WITH EYES CLOSED, RESPIRATIONS EVEN AND UNLABORED. NO NEEDS IDENTIFIED, CALL LIGHT IN REACH
[2025-07-08] VITALS (10 sets, daily range): BP systolic 105–128; BP diastolic 62–82
--- NOTE | 2025-07-08 00:50 | NUR ---
ROUNDED ON PATIENT, PATIENT IS RESTING WITH EYES CLOSED, RESPIRATIONS EVEN AND UNLABORED. NO NEEDS IDENTIFIED, CALL LIGHT IN REACH
--- NOTE | 2025-07-08 01:53 | NUR ---
ROUNDED ON PATIENT, IV PUMP ALARMING. NEW BAG OF IV FLUID HUNG. PATIENT AWAKE, RESPIRATIONS EVEN AND UNLABORED. HE DENIES ANY NEEDS. CALL LIGHT IN REACH
--- NOTE | 2025-07-08 04:51 | NUR ---
ROUNDED ON PATIENT, PATIENT REQUESTING HOB TO BE RAISED, GIVEN WATER PER REQUEST. TOOK SIPS OF WATER WITH ASSISTANCE. IVF CONTINUING TO INFUSE PER ORDER. HE DENIES ANY OTHER NEEDS, CALL LIGHT IN REACH
--- NOTE | 2025-07-08 06:43 | NUR ---
VS OBTAINED AND RECORDED. PATIENT POSITION ADJUSTED IN BED PER REQUEST. IVF CONTINUING TO INFUSE PER ORDER. HE DENIES OTHER NEEDS, CALL LIGHT IN REACH
--- NOTE | 2025-07-08 07:35 | NUR ---
REPORT RECIEVED FROM ROSEMARIE ODELL. PATIENT RESTING IN BED WITH HIS EYES CLOSED, IV ALARMING DUE TO OCCLUSION. PATIENT WOKE WHEN THIS RN ENETERED ROOM. CBG CHECKED AND WAS 114, NO INSULIN TO BE GIVEN PER ORDER. PATIENT WITHOUT FURTHER NEEDS AT THIS TIME. CALL LIGHT AND PERSONAL BELONGINGS ARE WITHIN REACH.
--- NOTE | 2025-07-08 08:28 | NUR ---
PATIENT IN BED AT THIS TIME. PATIENT REFUSED CHAIR, FISCAL CLERK CHARTED HOURLY ROUNDS AND BLOODSUGAR. CALL LIGHT WITHIN REACH, NO FURTHER NEEDS AT THIS TIME.
--- NOTE | 2025-07-08 08:40 | NUR ---
PATIENT MEDICATED PER EMAR. PATIENT ASSESSMENT COMPLETED. IV FLUSHED WITH 10ML OF NS, DRESSING INTACT. IV FLUIDS INFUSING PER ORDER. PATIENT SET UP WITH BREAKFAST TRAY. FRESH ICE WATER PROVIDED. PATIENT WITHOUT FURHTER NEEDS AT THIS TIME. CALL LIGHT AND PERSONAL BELONINGS ARE WITHIN REACH.
--- NOTE | 2025-07-08 09:20 | NUR ---
PATIENT REQUESTING TO LOWER HOB FOR COMFORT, RADIO PERFORMER IN ROOM TO ASSIST THIS RN WITH REPOSITIONING PATIENT. PATIENT HESITANT DUE TO PAIN, BUT DID LET US REPOSITION. PATIENT CONTINUES TO DENY PAIN MEDICATION. PATIENT WITHOUT FURTHER NEEDS AT THIS TIME. CALL LIGHT AND PERSONAL BELONGINGS ARE WITHIN REACH.
--- NOTE | 2025-07-08 10:05 | NUR ---
STOCK HOUSE WORKER IN ROOM OBTAINING VITAL SIGNS.
--- NOTE | 2025-07-08 10:06 | NUR ---
PATIENT IN BED AT THIS TIME. SHOE STICKS REPAIRER CHARTED VITALS AND I&O'S. CALL LIGHT WITHIN REACH, NO FURTHER NEEDS AT THIS TIME.
--- NOTE | 2025-07-08 10:50 | NUR ---
Attempted to speak with pt and he is unable to get any words out other than, "Hi". I attempted to call his son, but I was unable to reach.
--- NOTE | 2025-07-08 11:06 | NUR ---
PATIENT RESTING IN BED WITH HIS EYES CLOSED, EVEN AND UNLABORED RESPIRATIONS NOTED. NEW BAG OF IV FLUIDS INFUSING PER ORDER. PATIENT WITHOUT ANY NEEDS AT THIS TIME. CALL LIGHT AND PERSONAL BELONGINGS ARE WITHIN REACH.
--- NOTE | 2025-07-08 11:49 | NUR ---
PATIENT IN BED AT THIS TIME. CRUST SORTER CHARTED HOURLY ROUNDS AND BLOODSUGAR. CALL LIGHT WITHIN REACH, NO FURTHER NEEDS.
[2025-07-08 11:58] LABS: BASOPHILS 0.1 % (0.2-1.2); EOSINOPHILS 0 % (0.8-7.0); LYMPHOCYTES 3.8 % (21.8-53.1); MCH 30.3 PG (25.7-32.2); MCHC 34.1 g/dL (32.3-36.5); MCV 89.0 fL (79.0-92.2); MONOCYTES 3.1 % (5.3-12.2); NEUTROPHILS 92.6 % (34.0-67.9); RBC 4.09 M/uL (4.63-6.08)
[2025-07-08 12:16] LABS: ALT (SGPT) 102.0 U/L (14-59); AST (SGOT) 64.0 U/L (15-37); GLOMERULAR FILTRATION RATE,EST 132.0 mL/min (>60); PROTEIN, TOTAL 5.8 g/dL (6.4-8.2); UREA NITROGEN 18.0 mg/dL (7-18)
--- NOTE | 2025-07-08 12:17 | NUR ---
PATIENT MEDICATED PER EMAR. PATIENT SITTING UP FOR LUNCH. PATIENT WITHOUT FURTHER NEEDS AT THIS TIME. CALL LIGHT AND PERSONAL BELONGINGS ARE WITHIN REACH.
[2025-07-08] MEDS ORDERED: TRIMETHOPRIM/SULFAMETHOXAZOLE 1 EA TAB PO SCH (12:54)
[2025-07-08] MEDS ORDERED: POTASSIUM CHLORIDE 10 MEQ TABCR PO ONE (13:00)
--- NOTE | 2025-07-08 13:39 | NUR ---
PATIENT IN BED AT THIS TIME. BUILD MANAGER CHARTED VITALS AND I&O'S. RN KATALINA IN ROOM WELL. CALL LIGHT WITHIN REACH, NO FURTHER NEEDS.
--- NOTE | 2025-07-08 13:47 | NUR ---
PATIENT MEDICATED PER EMAR. PATIENT HOB LOWERED BACK DOWN PER PATIENT REQUEST. PATIENT REFUSED TO BE REPOSITIONED AT THIS TIME. PATIENT WITHOUT FURTHER NEEDS. VITAL SIGNS TAKEN AND ARE STABLE. CALL LIGHT AND PERSONAL BELONGINGS ARE WITHIN REACH.
[2025-07-08] MEDS ORDERED: BACLOFEN10 MG PO (13:55)
[2025-07-08] MEDS ORDERED: FLUOXETINE HCL40 MG PO (13:56)
--- NOTE | 2025-07-08 15:50 | NUR ---
DISCHARGE REVIEW: TRENDING LABS, IV ANTIBIOTICS TO BE TRANSITIONED TO [facility], PT/OT TREATMENT PLAN TO DC TO HOME WITH SON ADD: 07/09/2025
--- NOTE | 2025-07-08 16:00 | NUR ---
PATIENT RESTING IN BED WITH HIS EYES CLOSED, EVEN AND UNLABORED RESPIRATIONS NOTED. CALL LIGHT AND PERSONAL BELONGINGS ARE WITHIN REACH.
--- NOTE | 2025-07-08 16:33 | NUR ---
Spoke with Alex's son Simone. He denies any needs and has all the DME he needs. He states they have CG through [facility] and really do not have any needs at this time. Plan remains for son to take pt home when he is cleared medically.
--- NOTE | 2025-07-08 17:35 | NUR ---
PATIENT MEDICATED PER EMAR. PATIENT WITHOUT FURTHER NEEDS AT THIS TIME. FRESH ICE WATER PROVIDED. CALL LIGHT AND PERSONAL BELONGINGS ARE WITHIN REACH.
--- NOTE | 2025-07-08 19:35 | NUR ---
PATIENT WAS IN BED AT THIS TIME, LETY CARVAJAL AND I CHANGED PATIENT HE HAD MEDIUM BM, CHANGED BREIF, ULI PAD, GOWN, AND PUT A NEW PUREWICK ON.
--- NOTE | 2025-07-08 20:05 | NUR ---
REPORT RECEIVED FROM RN. PATIENT IN BED WITH HOB RAISED, EYES OPEN, CEHST RISE EVEN AND UNLABORED. NO APPARENT NEEDS NOTED AT THIS TIME.
--- NOTE | 2025-07-08 20:40 | NUR ---
PATIENTY IN BED WITH HOB RAISED, EYES OPEN, CHEST RISE EVEN AND UNLABORED. IV FLUID INFUSING WITHOUT DIFFICULTY. ASSESMENT AND VITAL SIGNS COMPLETED, SCHEDULED MEDICATIONS ADMINISTERED. CALL LIGHT AND PERSONAL BELONGINGS IN REACH OF PATIENT.
--- NOTE | 2025-07-08 23:43 | NUR ---
PATIENT IN BED WITH HOB RAISED, EYES CLOSED, CHEST RISE EVEN AND UNLABORED. CALL LIGHT AND PERSONAL BELONGINGS IN REACH OF PATIENT. IV FLUID INFUSING WITHOUT DIFFICULTY. NO APPARENT NEEDS NOTED AT THIS TIME.
[2025-07-09] VITALS (9 sets, daily range): BP systolic 113–143; BP diastolic 57–76
--- NOTE | 2025-07-09 01:22 | NUR ---
PATIENT IN BED WITH HOB RAISED, EYES OPEN, CHEST RISE EVEN AND UNLABORED. PATIENT SUPPLIED WITH WARM BLANKET AT HIS REQUEST. PATIENT DENIES FURTHER CONCERNS. IV FLUID INFUSING WITHOUT DIFFICULTY. CALL LIGHT AND PERSONAL BELONGINGS IN REACH OF PATIENT.
--- NOTE | 2025-07-09 04:06 | NUR ---
PATIENT IN BED WITH HOB RAISED, EYES OPEN, CHEST RISE EVEN AND UNLABORED. NEW BAG OF IV FLUID STARTED. IV FLUID INFUSING WITHOUT DIFFICULTY. CALL LIGHT AND PERSONAL BELONGINGS IN REACH OF PATIENT. PATIENT DENIES CONCERNS AT THIS TIME.
[2025-07-09 05:46] LABS: BASOPHILS 0.2 % (0.2-1.2); EOSINOPHILS 0 % (0.8-7.0); LYMPHOCYTES 6.6 % (21.8-53.1); MCH 30.3 PG (25.7-32.2); MCHC 33.9 g/dL (32.3-36.5); MCV 89.3 fL (79.0-92.2); MONOCYTES 5.9 % (5.3-12.2); NEUTROPHILS 86.7 % (34.0-67.9); RBC 4.00 M/uL (4.63-6.08)
--- NOTE | 2025-07-09 05:58 | NUR ---
PATIENT IN BED WITH HOB RAISED, EYES OPEN, CHEST RISE EVEN AND UNLABORED. VITAL SIGNS, ASSESMENT, AND I AND O COMPLETED. PATIENT REPORTS HE WOULD LIKE PUDDING. PATIENT DENIES FURTHER CONCERNS. CALL LIGHT AND PERSONAL BELONGINGS IN REACH OF PATIENT. IV FLUID INFUSING WITHOUT DIFFICULTY.
[2025-07-09 06:03] LABS: ALT (SGPT) 119.0 U/L (14-59); AST (SGOT) 63.0 U/L (15-37); GLOMERULAR FILTRATION RATE,EST 129.0 mL/min (>60); PROTEIN, TOTAL 5.6 g/dL (6.4-8.2); UREA NITROGEN 13.0 mg/dL (7-18)
--- NOTE | 2025-07-09 07:00 | NUR ---
Pt report received from RNs Elif and Wanda. Pt is resting supine in bed, needs assistance with adjusting his pillow. Pt is very hard to understand. Side rails up x4, bed alarm on, call light in reach. Pt requests water without ice at this time.
[2025-07-09] MEDS ORDERED: MAGNESIUM CHLORIDE 64 MG TABCR PO ONE (07:45)
--- NOTE | 2025-07-09 09:29 | NUR ---
MED REC COMPLETE
--- NOTE | 2025-07-09 15:23 | NUR ---
NOTIFIED OF PATIENT HAVING PAIN WITH NOTHING ORDERED. MD STATED HE WOULD PUT IN PAIN MEDICATION. NO FURTHER ORDERS AT THIS TIME.
--- NOTE | 2025-07-09 15:45 | NUR ---
WHEN PHYSICAL THERAPY AND NURSE CAME IN TO WORK WITH PATIENT. PHYSICAL THERAPY NOTICE THAT PATIENT WAS WET SO WE CHANGED PATIENT'S BED LINENS. ALSO THE PUREWICK. WE ALSO PUT ON A NEW GOWN. AND PUT A PILLOW ON HIS HIS RIGHT SIDE OF HIS HIPS. ALSO HE GOT TWO WARM BLANKETS. PATIENT IS RESTING.
--- NOTE | 2025-07-09 16:39 | NUR ---
Dr. Whitt in with pt at this time.
[2025-07-09] MEDS ORDERED: ACETAMINOPHEN 325 MG TAB PO PRN (17:30)
[2025-07-09] MEDS ORDERED: BACLOFEN 10 MG TAB PO SCH (21:00)
--- NOTE | 2025-07-10 01:22 | NUR ---
REPORT RECEIVED FROM CUATE HOUSTON. PT RESTING IN BED, EYES CLOSED. RR EVEN, UNLABORED. URINE EMPTITED. CALL LIGHT IN REACH.
--- NOTE | 2025-07-10 03:06 | NUR ---
PT RESTING IN BED, EYES CLOSED. RR EVEN, UNLABORED. CALL LIGHT IN REACH.
[2025-07-10 05:09] VITALS: BP 131/84
--- NOTE | 2025-07-10 05:29 | NUR ---
VS AND I & O COMPLETED. LUNGS DIM IN ALL LOBES. PT HAS PULLED HIS OWN IV, SITE HAS A SMALL DISCOLORED AREA. RN WILL NOTIFY MD. BEDDING, GOWN AND BRIEFS CHANGED. PT REPOOSITIONED. ICE WATER PROVIDED. PT STATES NO OTHER NEEDS AT THIS TIME. CALL LIGHT IN REACH.
[2025-07-10 05:32] LABS: BASOPHILS 0.1 % (0.2-1.2); EOSINOPHILS 0 % (0.8-7.0); LYMPHOCYTES 6.5 % (21.8-53.1); MCH 30.2 PG (25.7-32.2); MCHC 34.4 g/dL (32.3-36.5); MCV 87.8 fL (79.0-92.2); MONOCYTES 6.5 % (5.3-12.2); NEUTROPHILS 86.4 % (34.0-67.9); RBC 4.50 M/uL (4.63-6.08)
[2025-07-10 05:36] VITALS: BP 131/84
[2025-07-10 05:52] LABS: ALT (SGPT) 141.0 U/L (14-59); AST (SGOT) 64.0 U/L (15-37); GLOMERULAR FILTRATION RATE,EST 110.0 mL/min (>60); PROTEIN, TOTAL 6.2 g/dL (6.4-8.2); UREA NITROGEN 10.0 mg/dL (7-18)
--- NOTE | 2025-07-10 06:33 | NUR ---
SPOKE WITH MD ABOUT PULLED IV, VERBAL ORDER TO LEAVE IV OUT PT WILL BE DISCHARGING THIS MORNING.
--- NOTE | 2025-07-10 06:41 | NUR ---
PT RESTING IN BED, EYES CLOSED. RR EVEN, UNLABORED. CALL LIGHT IN REACH.
--- NOTE | 2025-07-10 07:19 | NUR ---
RECIEVED REPORT FROM ROSEMARIE PAULA. PT IS RESTING IN BED. RR EVEN AND UNLABORED. CALL LIGHT AND PERSONAL BELONGINGS ARE WITHIN REACH.
--- NOTE | 2025-07-10 07:57 | NUR ---
PATIENT IN BED AT THIS TIME. SUPERVISOR SEWER MAINTENANCE CHARTED HOURLY ROUNDS AND BLOODSUGAR. CALL LIGHT WITHIN REACH, NO FURTHER NEEDS.
--- NOTE | 2025-07-10 08:49 | NUR ---
PT LAYING IN BED WITH EYES OPEN, RR EVEN AND UNLABORED. PT DENIES NEEDS WHEN ASKED BY ROSEMARIE LITTLE. CALL LIGHT AND PERSONAL BELONGINGS WITHIN REACH.
[2025-07-10] MEDS ORDERED: FLUOXETINE HCL 20 MG CAP PO SCH (09:00)
[2025-07-10] MEDS ORDERED: MAGNESIUM CHLORIDE 64 MG TABCR PO ONE (09:00)
[2025-07-10 09:35] VITALS: BP 100/47
--- NOTE | 2025-07-10 09:39 | NUR ---
PATIENT IN BED AT THIS TIME. MAPPING PILOT CHARTED VITALS AND I&O'S. CALL LIGHT WITHIN REACH, NO FURTHER NEEDS AT THIS TIME.
--- NOTE | 2025-07-10 09:40 | NUR ---
PATIENT REFUSED 0800 AND 0900 MEDICATIONS ADMINISTERED PER THE EMAR. FULL ASSESSMENT COMPLETE AND DOCUMENTED IN THE CHART. NO IV SITE. MALE PUREWICK IN PLACE AND URINE IS CONCENTRATED. SKIN WITH SCATTERED TATTOOS AND SCABS NOTED. PATIENT REFUSED THIS RN AND ROSEMARIE PLUMMER TO DO SKIN ASSESSMENT ON HIS BACK. PATIENT LAST BM WAS 07/08/25. PATIENT IS ON ROOM AIR AND LUNG SOUNDS ARE DIMINISHED THROUGHOUT. 1+ PITTING EDEMA NOTED TO THE RIGHT FOOT. PATIENT STATED YES TO NUMBNESS AND TINGLING PUT COULD NOT TELL ME WHERE. PATIENT STATED NO FURTHER NEEDS AT THIS TIME. CALL LIGHT AND PERSONAL BELONGINGS ARE WITHIN REACH. LETY DHALIWAL REMAINS IN THE ROOM AND IS GETTING VITAL SIGNS.
[2025-07-10 09:47] VITALS: BP 100/47
--- NOTE | 2025-07-10 10:11 | NUR ---
PT RESTING IN BED WITH EYES CLOSED. CALL LIGHT AND PERSONAL BELONGINGS ARE WITHIN REACH. RR EVEN AND UNLABORED.
[2025-07-10] MEDS ORDERED: SULFAMETHOXAZO1 EAC1 PO (10:45)
--- NOTE | 2025-07-10 11:02 | NUR ---
PT LAYING IN BED WITH EYES CLOSED. RR EVEN AND UNLABORED; CALL LIGHT AND PERSONAL BELONGINGS ARE WITHIN REACH.
--- NOTE | 2025-07-10 12:16 | NUR ---
PATIENT IS LYING IN BED WITH HOB ELEVATED. PATIENT IS EATING LUNCH. PATIENT REFUSED TO VERBALIZE NAME AND DATE OF AT THIS TIME. PATIENT AND VERIFIED WITH ROSEMARIE WAGGONER. PATIENT SHOOK HIS HEAD YES AND STATED YES TO WANTING THE INSULIN. ROSEMARIE WAGGONER ADMINISTERED INSULIN IN THE LEFT ARM. PATIENT STATED NO FURTHER NEEDS AT THIS TIME. CALL LIGHT AND PERSONAL BELONGINGS ARE WITHIN REACH.
--- NOTE | 2025-07-10 14:15 | NUR ---
PT SCHEDULED FOR DISCHARGE, PATIENT SON ARRIVED WITH PERSONAL W/C. RN TO PATIENT ROOM, MALE PUREWICK REMOVED WITH ALCOHOL WIPES. PT INCONTINENT OF STOOL, DIAPER CHANGED. IV DC'D OVERNIGHT BY PATIENT, COBAN DRESSING TO LEFT FA REMOVED. PT PLACED IN PERSONAL CLOTHING. DC INSTRUCTIONS REVIEWED WITH SON, RX PROVIDED, PT SON STATES HE WILL BE ABLE TO GET RX FILLED AT [facility] TODAY [facility] CLOS[facility]. VERBALIZED UNDERSTANDING REGARDING F/U APPT ON 07/15 @ 0830. ASSISTED INTO CAR WITH SECURITY. PT SON STATES HE HAS A SLIDE BOARD AT HOME AND WILL BE ABLE TO GET PATIENT INTO THE HOUSE.
== END 2025-07-10 13:48 | disposition home or self-care (01) | DRG 871 ==
LOC: ED 16:23 → MS 19:40
PROVIDERS: Emergency Medicine; ADMIT Internal Medicine; ATTEND Family Medicine
PROC: 3E03329 Introduction of Other Anti-infective into Peripheral Vein, Percutaneous Approach (ICD-10-PCS; principal; 2025-07-06)
PROC: 3E0333Z Introduction of Anti-inflammatory into Peripheral Vein, Percutaneous Approach (ICD-10-PCS; 2025-07-06)
PROC: 8E0ZXY6 Isolation (ICD-10-PCS; 2025-07-06)
DX: A41.9 Sepsis, unspecified organism (principal); U07.1 COVID-19; N39.0 Urinary tract infection, site not specified; E87.1 Hypo-osmolality and hyponatremia; R74.02 Elevation of levels of lactic acid dehydrogenase [LDH]; D72.829 Elevated white blood cell count, unspecified; I25.10 Atherosclerotic heart disease of native coronary artery without angina pectoris; E11.9 Type 2 diabetes mellitus without complications; E78.5 Hyperlipidemia, unspecified; I48.91 Unspecified atrial fibrillation; I10 Essential (primary) hypertension; T38.0X5A Adverse effect of glucocorticoids and synthetic analogues, initial encounter; Z87.891 Personal history of nicotine dependence; Z95.1 Presence of aortocoronary bypass graft; Z79.84 Long term (current) use of oral hypoglycemic drugs; Z79.01 Long term (current) use of anticoagulants
CPT/HCPCS: 36415; 51701; 71045; 80048; 80053; 81001; 83036; 83605; 83735; 85025; 85060; 87040; 87088; 87502; 96365; 96375; 97163; 97167; 97530; 97535; 99285-25; A9270; J0696; J1100; J1815; J7030; U0002